=== PATIENT | female | born 2000 | race American Indian/Alaskan Native ===

== ENCOUNTER 2019-06-25 20:59 | Emergency (ER) | payer MEDICAID ==
--- NOTE | 2019-06-25 21:59 | Emergency Department Report ---
ED Psych HPI - General Chief Complaint: Psych Stated Complaint: SUICIDAL Time Seen by Provider: 06/25/19 21:37 Source: patient, EMS Mode of arrival: Stretcher Limitations: No Limitations - History of Present Illness Initial Comments: 18 yo female with a past medical history of asthma and bipolar disorder presents to the hospital with suicidal ideation for "a while." Patient currently resides at the [facility] for the past 2 months. Patient states she ran out of her medications just restarted them today. Prior to that she cannot recall her last dose. Patient has history of suicide attempt via overdose and hanging. Patient's plan today is to hang herself. No physical complaints reported. Patient denies auditory or visual hallucinations. - Related Data Home Medications Medication Instructions Recorded Confirmed Last Taken FLUoxetine 20 mg PO DAILY 06/25/19 06/25/19 Unknown OLANZapine 10 mg PO HS 06/25/19 06/25/19 Unknown OXcarbazepine 600 mg PO BID 06/25/19 06/25/19 Unknown Allergies Allergy/AdvReac Type Severity Reaction Status Date / Time No Known Allergies Allergy Unverified 06/25/19 21:45 ED Review of Systems ROS: Stated complaint: SUICIDAL Other details as noted in HPI Comment: All other systems reviewed and negative ED Past Medical Hx - Past Medical History Hx Asthma: Yes Additional medical history: Bipolar disorder/ depression - Surgical History Past Surgical History?: No - Social History Smoking Status: Never Smoker Substance Use Type: None - Medications Home Medications: Home Medications Medication Instructions Recorded Confirmed Last Taken Type FLUoxetine 20 mg PO DAILY 06/25/19 06/25/19 Unknown History OLANZapine 10 mg PO HS 06/25/19 06/25/19 Unknown History OXcarbazepine 600 mg PO BID 06/25/19 06/25/19 Unknown History ED Physical Exam - General Limitations: No Limitations - Other Other exam information: Gen.: No acute distress Head: Atraumatic Eyes: Normal appearance ENT: Moist mucous membranes Neck: Normal appearance, no posterior midline tenderness, no meningismus Chest: Clear to auscultation bilaterally Cardiovascular: Regular rate and rhythm Abdomen: Normal appearance, soft, nontender, no rebound or guarding, normal bowel sounds Back: Normal appearance, nontender Extremity: Full range of motion, normal appearance Neuro: Alert oriented 3, clear speech, no focal motor or sensory deficit Psychiatric: Poor eye contact Skin: No rash ED Course Vital Signs 06/25/19 06/26/19 21:18 01:58 Temperature 99.1 F 98.5 F Pulse Rate 86 84 Respiratory 18 18 Rate Blood Pressure 98/60 Blood Pressure 105/57 [Left] O2 Sat by Pulse 96 98 Oximetry ED Medical Decision Making - Lab Data Result diagrams: 06/25/19 22:24 06/25/19 22:24 Lab Results 06/25/19 06/25/19 06/25/19 Range/Units 22:24 22:24 22:24 WBC 6.2 (4.5-11.0) K/mm3 RBC 4.84 (3.65-5.03) M/mm3 Hgb 11.4 (10.1-14.3) gm/dl Hct 37.2 (30.3-42.9) % MCV 77 L (79-97) fl MCH 24 L (28-32) pg MCHC 31 (30-34) % RDW 16.0 H (13.2-15.2) % Plt Count 198 (140-440) K/mm3 Lymph % (Auto) 31.9 (13.4-35.0) % Arthur % (Auto) 10.9 H (0.0-7.3) % Eos % (Auto) 2.5 (0.0-4.3) % Baso % (Auto) 0.7 (0.0-1.8) % Lymph # 2.0 (1.2-5.4) K/mm3 Arthur # 0.7 (0.0-0.8) K/mm3 Eos # 0.2 (0.0-0.4) K/mm3 Baso # 0.0 (0.0-0.1) K/mm3 Seg Neutrophils % 54.0 (40.0-70.0) % Seg Neutrophils # 3.4 (1.8-7.7) K/mm3 Sodium 141 (137-145) mmol/L Potassium 3.8 (3.6-5.0) mmol/L Chloride 107.0 (98-107) mmol/L Carbon Dioxide 25 (22-30) mmol/L Anion Gap 13 mmol/L BUN 14 (7-17) mg/dL Creatinine 0.8 (0.7-1.2) mg/dL Estimated GFR > 60 ml/min BUN/Creatinine Ratio 18 % Glucose 89 (65-100) mg/dL Calcium 8.8 (8.4-10.2) mg/dL HCG, Qual (Negative) Urine Color (Yellow) Urine Turbidity (Clear) Urine pH (5.0-7.0) Ur Specific [place] (1.003-1.030) Urine Protein (Negative) mg/dL Urine Glucose (UA) (Negative) mg/dL Urine Ketones (Negative) mg/dL Urine Blood (Negative) Urine Nitrite (Negative) Urine Bilirubin (Negative) Urine Urobilinogen (<2.0) mg/dL Ur Leukocyte Esterase (Negative) Urine WBC (Auto) (0.0-6.0) /HPF Urine RBC (Auto) (0.0-6.0) /HPF U Epithel Cells (Auto) (0-13.0) /HPF Urine Bacteria (Auto) (Negative) /HPF Urine Mucus /HPF Salicylates < 0.3 L (2.8-20.0) mg/dL Urine Opiates Screen Urine Methadone Screen Acetaminophen (10.0-30.0) ug/mL Ur Barbiturates Screen Ur Phencyclidine Scrn Ur Amphetamines Screen U Benzodiazepines Scrn Urine Cocaine Screen U Marijuana (THC) Screen Drugs of Abuse Note Plasma/Serum Alcohol (0-0.07) % 06/25/19 06/25/19 06/25/19 Range/Units 22:24 22:24 22:24 WBC (4.5-11.0) K/mm3 RBC (3.65-5.03) M/mm3 Hgb (10.1-14.3) gm/dl Hct (30.3-42.9) % MCV (79-97) fl MCH (28-32) pg MCHC (30-34) % RDW (13.2-15.2) % Plt Count (140-440) K/mm3 Lymph % (Auto) (13.4-35.0) % [place] % (Auto) (0.0-7.3) % Eos % (Auto) (0.0-4.3) % Baso % (Auto) (0.0-1.8) % Lymph # (1.2-5.4) K/mm3 Arthur # (0.0-0.8) K/mm3 Eos # (0.0-0.4) K/mm3 Baso # (0.0-0.1) K/mm3 Seg Neutrophils % (40.0-70.0) % Seg Neutrophils # (1.8-7.7) K/mm3 Sodium (137-145) mmol/L Potassium (3.6-5.0) mmol/L Chloride (98-107) mmol/L Carbon Dioxide (22-30) mmol/L Anion Gap mmol/L BUN (7-17) mg/dL Creatinine (0.7-1.2) mg/dL Estimated GFR ml/min BUN/Creatinine Ratio % Glucose (65-100) mg/dL Calcium (8.4-10.2) mg/dL HCG, Qual Negative (Negative) Urine Color (Yellow) Urine Turbidity (Clear) Urine pH (5.0-7.0) Ur Specific [place] (1.003-1.030) Urine Protein (Negative) mg/dL Urine Glucose (UA) (Negative) mg/dL Urine Ketones (Negative) mg/dL Urine Blood (Negative) Urine Nitrite (Negative) Urine Bilirubin (Negative) Urine Urobilinogen (<2.0) mg/dL Ur Leukocyte Esterase (Negative) Urine WBC (Auto) (0.0-6.0) /HPF Urine RBC (Auto) (0.0-6.0) /HPF U Epithel Cells (Auto) (0-13.0) /HPF Urine Bacteria (Auto) (Negative) /HPF Urine Mucus /HPF Salicylates (2.8-20.0) mg/dL Urine Opiates Screen Urine Methadone Screen Acetaminophen < 5.0 L (10.0-30.0) ug/mL Ur Barbiturates Screen Ur Phencyclidine Scrn Ur Amphetamines Screen U Benzodiazepines Scrn Urine Cocaine Screen U Marijuana (THC) Screen Drugs of Abuse Note Plasma/Serum Alcohol < 0.01 (0-0.07) % 06/26/19 06/26/19 Range/Units 03:13 03:13 WBC (4.5-11.0) K/mm3 RBC (3.65-5.03) M/mm3 Hgb (10.1-14.3) gm/dl Hct (30.3-42.9) % MCV (79-97) fl MCH (28-32) pg MCHC (30-34) % RDW (13.2-15.2) % Plt Count (140-440) K/mm3 Lymph % (Auto) (13.4-35.0) % Arthur % (Auto) (0.0-7.3) % Eos % (Auto) (0.0-4.3) % Baso % (Auto) (0.0-1.8) % Lymph # (1.2-5.4) K/mm3 Arthur # (0.0-0.8) K/mm3 Eos # (0.0-0.4) K/mm3 Baso # (0.0-0.1) K/mm3 Seg Neutrophils % (40.0-70.0) % Seg Neutrophils # (1.8-7.7) K/mm3 Sodium (137-145) mmol/L Potassium (3.6-5.0) mmol/L Chloride (98-107) mmol/L Carbon Dioxide (22-30) mmol/L Anion Gap mmol/L BUN (7-17) mg/dL Creatinine (0.7-1.2) mg/dL Estimated GFR ml/min BUN/Creatinine Ratio % Glucose (65-100) mg/dL Calcium (8.4-10.2) mg/dL HCG, Qual (Negative) Urine Color Yellow (Yellow) Urine Turbidity Cloudy (Clear) Urine pH 5.0 (5.0-7.0) Ur Specific [place] 1.030 (1.003-1.030) Urine Protein 30 mg/dl (Negative) mg/dL Urine Glucose (UA) Neg (Negative) mg/dL Urine Ketones Tr (Negative) mg/dL Urine Blood Neg (Negative) Urine Nitrite Neg (Negative) Urine Bilirubin Neg (Negative) Urine Urobilinogen < 2.0 (<2.0) mg/dL Ur Leukocyte Esterase Tr (Negative) Urine WBC (Auto) 6.0 (0.0-6.0) /HPF Urine RBC (Auto) 6.0 (0.0-6.0) /HPF U Epithel Cells (Auto) 7.0 (0-13.0) /HPF Urine Bacteria (Auto) 2+ (Negative) /HPF Urine Mucus 3+ /HPF Salicylates (2.8-20.0) mg/dL Urine Opiates Screen Presumptive negative Urine Methadone Screen Presumptive negative Acetaminophen (10.0-30.0) ug/mL Ur Barbiturates Screen Presumptive negative Ur Phencyclidine Scrn Presumptive negative Ur Amphetamines Screen Presumptive negative U Benzodiazepines Scrn Presumptive negative Urine Cocaine Screen Presumptive negative U Marijuana (THC) Screen Presumptive negative Drugs of Abuse Note Disclamer Plasma/Serum Alcohol (0-0.07) % - Medical Decision Making She is medically clear for psychiatric admission. - Differential Diagnosis depressed, bipolar, suicidal Critical Care Time: No Critical care attestation.: If time is entered above; I have spent that time in minutes in the direct care of this critically ill patient, excluding procedure time. ED Disposition Clinical Impression: Suicidal ideation, Bipolar disorder, Noncompliance with medication regimen, Medical clearance for psychiatric admission Disposition: DC/TX-65 PSY HOSP/PSY UNIT Is pt being admited?: No Condition: Stable Referrals: PRIMARY CARE [Primary Care Provider] - 3-5 Days Time of Disposition: 05:41
[2019-06-25 23:10] LABS: Basophils % (Auto) 0.7 % (0.0-1.8); Eosinophils # (Auto) 0.2 K/mm3 (0.0-0.4); Eosinophils % (Auto) 2.5 % (0.0-4.3); Lymphocytes % (Auto) 31.9 % (13.4-35.0); Mean Corpuscular HGB Conc 31 % (30-34); Mean Corpuscular Volume 77 fl (79-97); Monocytes # (Auto) 0.7 K/mm3 (0.0-0.8); Monocytes % (Auto) 10.9 % (0.0-7.3); Platelet Count 198 K/mm3 (140-440); Red Blood Count 4.84 M/mm3 (3.65-5.03)
[2019-06-25 23:13] LABS: Hematocrit 37.2 % (30.3-42.9); Hemoglobin 11.4 gm/dl (10.1-14.3)
[2019-06-25 23:23] LABS: BUN/Creatinine Ratio 18; Blood Urea Nitrogen 14 mg/dL (7-17); Calcium 8.8 mg/dL (8.4-10.2); Hemolysis Index 15
[2019-06-26 03:31] LABS: Amphetamine Screen,Urine PRESUMPTIVE NEGATIVE; Benzodiazepines Screen,Urine PRESUMPTIVE NEGATIVE; Cannabinoid Screen,Urine PRESUMPTIVE NEGATIVE; Cocaine Screen,Urine PRESUMPTIVE NEGATIVE; Methadone Screen,Urine PRESUMPTIVE NEGATIVE; Opiate Screen,Urine PRESUMPTIVE NEGATIVE
[2019-06-26 03:33] LABS: Bacteria,Urine 2+ /HPF (Negative); Bilirubin,Urine NEG (Negative); Blood,Urine NEG (Negative); Color,Urine Yellow (Yellow); Mucus,Urine 3+ /HPF; Urobilinogen,Urine < 2.0 mg/dL (<2.0)
[2019-06-26 09:35] VITALS: BP 122/63
--- NOTE | 2019-06-26 10:02 | Consultation ---
History of Present Illness - Reason for Consult Consult date: 06/26/19 Reason for consult: Mental Health EValuation Requesting physician: KWADWO SANCHEZ - Chief Complaint Chief complaint: "I miss my son" - History of Present Psychiatric Illness 18 y.o.AA female who presented to the ER. Today the patient was calm, but guarded during the assessment. She did state that she miss her son, who's not in her custody at this time. She alos stated that she do not get along with other occupants at her long term. She would not elaborate more about her current situation when asked. She stated that she felt "some type of way" yesterday and gestured SI's to her therapist. She stated that she would have overdosed. She would not confirm or deny SI's today. She stated that she take psy medication (Prozac). She denies HI's and AVH's. She denies erratic sleep and a poor appetite. She denies recreational drug use and alcohol consumption (etoh). Medications and Allergies Allergies Allergy/AdvReac Type Severity Reaction Status Date / Time No Known Allergies Allergy Unverified 06/25/19 21:45 Home Medications Medication Instructions Recorded Confirmed Last Taken Type FLUoxetine 20 mg PO DAILY 06/25/19 06/25/19 Unknown History OLANZapine 10 mg PO HS 06/25/19 06/25/19 Unknown History OXcarbazepine 600 mg PO BID 06/25/19 06/25/19 Unknown History Past psychiatric history - Past Medical History Past Medical History: No medical history Past Surgical History: No surgical history - past Psychiatric treatment and history psychiatric treatment history: Several inpatient psy settings in the past. Denies a fam psy hx, - Social History Social history: other (Reside at a long term) Mental Status Exam - Vital signs Last Vital Signs Temp 98.7 F 06/26/19 07:48 Pulse 94 H 06/26/19 07:48 Resp 20 06/26/19 07:48 BP 122/63 06/26/19 07:48 Pulse Ox 98 06/26/19 07:48 - Exam Narrative exam: MSE: Appearance: calm, cooperative Behavior: regular eye contact Speech: regular rate and tone Mood: "okay" Affect: flat Thought Process: circumstantial Thought Content: denies HI's and AVH's Motor Activity: sitting up in bed Cognition: A/O x3 Insight: variable Judgment: poor Results Result Diagrams: 06/25/19 22:24 06/25/19 22:24 Abnormal lab results 06/25/19 06/25/19 06/25/19 Range/Units 22:24 22:24 22:24 MCV 77 L (79-97) fl MCH 24 L (28-32) pg RDW 16.0 H (13.2-15.2) % [place] % (Auto) 10.9 H (0.0-7.3) % Salicylates < 0.3 L (2.8-20.0) mg/dL Acetaminophen < 5.0 L (10.0-30.0) ug/mL All other labs normal. Assessment and Plan Assessment and plan: Impression: MDD. The patient was calm and cooperative during the assessment. UDS is negative. DDx: Bipolar DO Recommendation/Plan: Continue 1013 and start Prozac 20 mg PO daily for depression. Discussed possible sucidality/medication induced daniela with the patient reference Prozac, she verbalized understanding. Dispo: The patient was referred to inpatient psy services. Staffed with Dr Hans Moffett.
[2019-06-26] MEDS ORDERED: FLUoxetine 20 MG CAP PO SCH (10:30)
== END 2019-06-26 14:16 ==
LOC: EEVIPCON 20:59 → ED 20:59
DX: F31.9 Bipolar disorder, unspecified (principal); J45.909 Unspecified asthma, uncomplicated; Z91.14 Patient's other noncompliance with medication regimen; Z79.899 Other long term (current) drug therapy
CPT/HCPCS: 36415; 80048; 80307; 80320; 81001; 84703; 85025; G0480

== ENCOUNTER 2019-07-13 17:49 | Emergency (ER) | payer MEDICAID ==
[2019-07-13 17:57] VITALS: BP 132/85
--- NOTE | 2019-07-13 17:59 | Event Note ---
ED Screening Note Date of service: 07/13/19 Time: 17:55 ED Screening Note: This is a 18 y.o. F. that presents to the ER after passing a large blood clot. Patient states she was urinating when a large clot came out. She is on depovera control. LMP 5 months ago. Denies vaginal bleeding currently. This initial assessment/diagnostic orders/clinical plan/treatment(s) is/are subject to change based on patients health status, clinical progression and re- assessment by fellow clinical providers in the ED. Further treatment and workup at subsequent clinical providers discretion. Patient/guardian urged not to elope from the ED as their condition may be serious if not clinically assessed and managed. Initial orders include: Labs
--- NOTE | 2019-07-13 19:03 | Emergency Department Report ---
HPI - General Chief Complaint: Vaginal Bleeding Time Seen by Provider: 07/13/19 17:55 - HPI HPI: 18-year-old Mary Grace female presents to the emergency department with what she believes is some vaginal bleeding with blood clots. She has some mild pelvic discomfort. She denies any dysuria, vaginal discharge. Patient also says she is unsure whether the blood is coming from the vagina or her rectum. Patient had a baby back in January. She denies having any normal menstrual cycles as she just started Depo-Provera 2 weeks ago and did not have a menstrual cycle yet after having the baby. She does not have an [facility]. She has not taken anything for her symptoms prior to arrival today. ED Past Medical Hx - Past Medical History Previous Medical History?: Yes Hx Asthma: Yes Additional medical history: Bipolar disorder/ depression - Surgical History Past Surgical History?: No - Social History Smoking Status: Current Every Day Smoker Substance Use Type: None - Medications Home Medications: Home Medications Medication Instructions Recorded Confirmed Last Taken Type FLUoxetine 20 mg PO DAILY 06/25/19 06/25/19 Unknown History OLANZapine 10 mg PO HS 06/25/19 06/25/19 Unknown History OXcarbazepine 600 mg PO BID 06/25/19 06/25/19 Unknown History ED Review of Systems ROS: Stated complaint: VAG BLEEDING Other details as noted in HPI Comment: All other systems reviewed and negative Constitutional: denies: chills, fever Gastrointestinal: denies: abdominal pain, vomiting Genitourinary: abnormal menses, other (pelvic discomfort). denies: dysuria, discharge Musculoskeletal: denies: back pain, arthralgia Skin: denies: rash, lesions Physical Exam - Physical Exam Vital Signs: Vital Signs 07/13/19 17:56 Temperature 98.6 F Pulse Rate 95 H Respiratory 16 Rate Blood Pressure 132/85 O2 Sat by Pulse 100 Oximetry Physical Exam: GENERAL: The patient is well-developed well-nourished. HENT: Normocephalic. Atraumatic. Patient has moist mucous membranes. EYES: Extraocular motions are intact. NECK: Supple. Trachea is midline. CHEST/LUNGS: Clear to auscultation. There is no respiratory distress noted. HEART/CARDIOVASCULAR: Regular. There is no tachycardia. There is no murmur. ABDOMEN: Abdomen is soft, nontender. Patient has normal bowel sounds. There is no abdominal distention. SKIN: Skin is warm and dry. NEURO: The patient is awake, alert, and oriented. The patient is cooperative. The patient has no focal neurologic deficits. Normal speech. MUSCULOSKELETAL: There is no tenderness or deformity. There is no evidence of acute injury. PELVIS: There is a mild amount of maroon-colored blood in the vaginal vault. ED Course Vital Signs 07/13/19 17:56 Temperature 98.6 F Pulse Rate 95 H Respiratory 16 Rate Blood Pressure 132/85 O2 Sat by Pulse 100 Oximetry - Reevaluation(s) Reevaluation #1: 07/13/19 21:39 Pelvic examination was done with nurse Kam at bedside as a weir fisherman and for assistance. ED Medical Decision Making - Lab Data Result diagrams: 07/13/19 18:18 - Radiology Data Radiology results: report reviewed ULTRASOUND PELVIS INDICATION / CLINICAL INFORMATION: pelvic pain. Female presents to the emergency department with what she believes is some vaginal bleeding with blood clots. She has some mild pelvic discomfort. She denies any dysuria, vaginal discharge. Patient had a baby back in January. She denies having any normal menstrual cycles as she just started Depo-Provera 2 weeks ago and did not have a menstrual cycle yet after having the baby. TECHNIQUE: Transabdominal and Transvaginal. Duplex Color Doppler used: Yes. COMPARISON: None available FINDINGS: UTERUS: Present. - Appearance (if present): No significant abnormality. - Size in cm (if present): 7.4 x 3.6 x 5.0. - Endometrial Complex (if present): No significant abnormality.. Thickness in cm (if measured) = 0.7 - Mass lesions: None. - Additional findings: None. RIGHT ADNEXA: Small follicles versus cysts. Normal color Doppler blood flow. LEFT ADNEXA: Small follicles versus cysts. Normal color Doppler blood flow. URINARY BLADDER: No significant abnormality. FREE FLUID: None. ADDITIONAL FINDINGS: None. IMPRESSION: 1. No acute sonographic abnormality of the pelvis. - Medical Decision Making Patient comes in complaining of some vaginal bleeding and clots. Pelvic examination was done that does show a mild amount of maroon colored blood in the vaginal vault. Ultrasound was done of the pelvis that does not show any ovarian torsion and is unremarkable overall. Patient's labs are unremarkable as well including a hemoglobin greater than 11 and the patient is not . Patient appears to have some dysfunctional uterine bleeding. She recently had a baby and had not yet had a menstrual cycle and she started Depo-Medrol. Patient was given a referral for [facility]. She will return to the ER with any worsening of her symptoms or any acute distress. - Differential Diagnosis , fibroids, dysfunctional uterine bleeding Critical Care Time: No Critical care attestation.: If time is entered above; I have spent that time in minutes in the direct care of this critically ill patient, excluding procedure time. ED Disposition Clinical Impression: Dysfunctional uterine bleeding Disposition: DC-01 TO HOME OR SELFCARE Is pt being admited?: No Condition: Stable Instructions: Dysfunctional Uterine Bleeding (ED) Additional Instructions: Please follow-up with a primary care physician and [facility] in the next few days. Return to the emergency Department with any worsening of your symptoms or any acute distress. Referrals: PRIMARY CAREMD [Primary Care Provider] - 2-3 Days [facility] [Provider Group] - 2-3 Days [facility] [Provider Group] - 2-3 Days Time of Disposition: 21:25
[2019-07-13 19:17] LABS: Color,Urine Straw (Yellow)
[2019-07-13 19:18] LABS: Bilirubin,Urine NEG (Negative); Blood,Urine MOD (Negative); Protein,Urine <15 mg/dL mg/dL (Negative); Urobilinogen,Urine < 2.0 mg/dL (<2.0)
[2019-07-13 19:24] LABS: Basophils % (Auto) 0.5 % (0.0-1.8); Eosinophils % (Auto) 0.8 % (0.0-4.3); Hematocrit 37.3 % (30.3-42.9); Hemoglobin 11.8 gm/dl (10.1-14.3); Lymphocytes # (Auto) 1.5 K/mm3 (1.2-5.4); Lymphocytes % (Auto) 26.9 % (13.4-35.0); Mean Corpuscular HGB Conc 32 % (30-34); Mean Corpuscular Volume 77 fl (79-97); Monocytes # (Auto) 0.5 K/mm3 (0.0-0.8); Monocytes % (Auto) 9.8 % (0.0-7.3); Platelet Count 218 K/mm3 (140-440); Red Blood Count 4.88 M/mm3 (3.65-5.03); Red Cell Distribution Width 16.8 % (13.2-15.2)
--- NOTE | 2019-07-13 21:18 | Ultrasound Report ---
ULTRASOUND PELVIS INDICATION / CLINICAL INFORMATION: pelvic pain. Female presents to the emergency department with what she believes is some vaginal bleed ing with blood clots. She has some mild pelvic discomfort. She denies any dysuria, vaginal discharge. Patient had a baby back in January. She denies having any normal menstrual cycles as she just started De po-Provera 2 weeks ago and did not have a menstrual cycle yet after having the baby. TECHNIQUE: Transabdominal and Transvaginal. Duplex Color Doppler used: Yes. COMPARISON: None available FINDINGS: UTERUS: Present. - Appearance (if present): No significant abnormality. - Size in cm (if present): 7.4 x 3.6 x 5.0. - Endometrial Complex (if present): No significant abnormality.. Thickness in cm (if measured) = 0.7 - Mass lesions: None. - Additional findings: None. RIGHT ADNEXA: Small follicles versus cysts. Normal color Doppler blood flow. LEFT ADNEXA: Small follicles versus cysts. Normal color Doppler blood flow. URINARY BLADDER: No significant abnormality. FREE FLUID: None. ADDITIONAL FINDINGS: None. IMPRESSION: 1. No acute sonographic abnormality of the pelvis. Signer Name: Zachary Ugarte MD Signed: 07/13/2019 9:13 PM Workstation Name: [id number]
== END 2019-07-13 21:38 | disposition home or self-care (01) ==
LOC: ED 17:49
DX: N93.8 Other specified abnormal uterine and vaginal bleeding (principal); J45.909 Unspecified asthma, uncomplicated; F31.9 Bipolar disorder, unspecified; F17.200 Nicotine dependence, unspecified, uncomplicated
CPT/HCPCS: 36415; 76830; 81001; 84703; 85025; 93975